=== PATIENT | female | born 1935 | race Caucasian/White ===

== ENCOUNTER 2017-05-28 06:55 | Day surgery (SDC) | payer MEDICARE, MEDICAID ==
[2017-05-28] VITALS (8 sets, daily range): BP systolic 140–157; BP diastolic 51–68
[~2017-05-28] VITALS: Ht 165.1 cm; Wt 62.7 kg
[~2017-05-28 06:55] MED LIST: ACET600C PO; AMLO5TAB16 PO; CYA500T PO; FURO-150 PO; HORS300C PO; LACT1CAP65 PO; LEVO100T9 PO; LEVO250T58 PO; LOSA50TA37 PO; MULT-1085 PO; PROP10DR5 OP; THIO50CA PO; VITC500T PO; hyDRALAzine tablet PO
[2017-05-28] MEDS ORDERED: fentaNYL/PF 50MCG/1 ML 2ML syringe ONE (07:09)
[2017-05-28] MEDS ORDERED: meperidine/PF 100mg/ml syringe ONE (07:09)
[2017-05-28] MEDS ORDERED: diphenhydrAMINE 50 mg/ml inj ONE (07:09)
[2017-05-28] MEDS ORDERED: MIDAZolam 1mg/ml 10ml vial ONE (07:09)
[2017-05-28] MEDS ORDERED: LIDOcaine Viscous 15ml cup ONE (07:10)
[2017-05-28] MEDS ORDERED: iohexol 300 MG/1 ML 50ml polymer ONE (07:10)
[2017-05-28] MEDS ORDERED: glucagon, human recombinant 1mg kit ONE ×2 (07:10)
[2017-05-28] MEDS ORDERED: levoFLOXACIN-Levaquin 500mg/D5 0 ML IV ONE (07:10)
[2017-05-28] MEDS ORDERED: AMLO10TA PO (07:23)
[2017-05-28] MEDS ORDERED: FURO20TA4 PO (07:23)
[2017-05-28] MEDS ORDERED: LEVO100T9 PO (07:28)
[2017-05-28] MEDS ORDERED: MULT-38 PO (07:32)
[2017-05-28] MEDS ORDERED: LOSA100T28 PO (07:32)
[2017-05-28] MEDS ORDERED: PROP10DR4 OP (07:34)
[2017-05-28] MEDS ORDERED: HYDR-4069 PO (07:34)
== END 2017-05-28 10:40 | disposition home or self-care (01) ==
LOC: GI LAB 06:55
PROVIDERS: ATTEND Internal Medicine Gastroenterology
DX: Z46.59 Encounter for fitting and adjustment of other gastrointestinal appliance and device (principal); I12.9 Hypertensive chronic kidney disease with stage 1 through stage 4 chronic kidney disease, or unspecified chronic kidney disease; E11.22 Type 2 diabetes mellitus with diabetic chronic kidney disease; N18.3 Chronic kidney disease, stage 3 (moderate); E03.9 Hypothyroidism, unspecified; Z87.440 Personal history of urinary (tract) infections; Z91.013 Allergy to seafood; Z88.0 Allergy status to penicillin; Z91.018 Allergy to other foods
CPT/HCPCS: 43275; J1200; J1610; J2250; J3010; J7030; Q9967; A4620; G0500; J1956; J2175

== ENCOUNTER 2017-11-02 09:56 | Emergency (ER) | payer MEDICARE, MEDICAID ==
[~2017-11-02] VITALS: Ht 162.6 cm; Wt 41.0 kg
[~2017-11-02 09:56] MED LIST changes: -ACET600C PO; +AMLO10TA PO; -AMLO5TAB16 PO; -CYA500T PO; -FURO-150 PO; +FURO20TA4 PO; -HORS300C PO; +HYDR-4069 PO; -LACT1CAP65 PO; -LEVO250T58 PO; +LOSA100T28 PO; -LOSA50TA37 PO; -MULT-1085 PO; +MULT-38 PO; +PROP10DR4 OP; -PROP10DR5 OP; -THIO50CA PO; -VITC500T PO; -hyDRALAzine tablet PO
[2017-11-02] MEDS ORDERED: LIDOcaine 1.5% w/epinephrine 1:200,000 5ml ampul IJ ONE (10:15)
[2017-11-02] MEDS ORDERED: TETanus/Pertussis (Acell)/Diphther VAC/PF (Tdap-Adult) 0.5ml syringe IM ONE (10:15)
[2017-11-02 11:01] VITALS: BP 191/72
== END 2017-11-02 11:04 | disposition home or self-care (01) ==
LOC: ER 09:57
DX: S01.01XA Laceration without foreign body of scalp, initial encounter (principal); I10 Essential (primary) hypertension; E11.9 Type 2 diabetes mellitus without complications; Z79.899 Other long term (current) drug therapy; Z88.0 Allergy status to penicillin; Z91.013 Allergy to seafood; W18.30XA Fall on same level, unspecified, initial encounter; Y93.89 Activity, other specified; Y92.89 Other specified places as the place of occurrence of the external cause; Y99.8 Other external cause status
CPT/HCPCS: 12001; 90471; 90715; 99284; J3490

== ENCOUNTER → 2017-12-22 | Outpatient (CLI) | payer MEDICARE, MEDICAID | END | disposition home or self-care (01) | LOC: CARD DIAG 11:20 | PROVIDERS: ATTEND Student in an Organized Health Care Education/Training Program | DX: I08.3 Combined rheumatic disorders of mitral, aortic and tricuspid valves (principal); R01.1 Cardiac murmur, unspecified; M79.671 Pain in right foot; I10 Essential (primary) hypertension; E11.9 Type 2 diabetes mellitus without complications | CPT/HCPCS: 93306 ==

== ENCOUNTER 2018-01-12 20:15 | Emergency (ER) | payer MEDICARE, MEDICAID ==
[~2018-01-12] VITALS: Ht 165.1 cm; Wt 64.0 kg
[~2018-01-12 20:15] MED LIST changes: +LOSA100T15 PO; -LOSA100T28 PO
[2018-01-12 21:00] LABS: BASOPHILS % (AUTO) 0.4 % (0-1); EOSINOPHILS # (AUTO) 0.2 X10'3 (0-0.9); EOSINOPHILS % (AUTO) 2.5 % (0-6); HEMATOCRIT 36.2 % (35.0-45.0); HEMOGLOBIN 12.5 g/dl (12.0-16.0); LYMPHOCYTES # (AUTO) 2.4 X10'3 (1.1-4.8); LYMPHOCYTES % (AUTO) 26.8 % (21-51); MEAN CORPUSCULAR HGB CONC 34.5 % (33.0-36.5); MEAN CORPUSCULAR VOLUME 92.7 FL (78-98); MEAN PLATELET VOLUME 7.2 FL (7.4-10.4); MONOCYTES # (AUTO) 0.6 X10'3 (0-0.9); MONOCYTES % (AUTO) 6.8 % (2-12); NEUTROPHILS # (AUTO) 5.8 X10'3 (1.8-7.7); NEUTROPHILS % (AUTO) 63.5 % (42-75); PLATELET COUNT 240 X10'3 (140-440); RED BLOOD COUNT 3.91 X10'6 (4.20-5.60); RED CELL DISTRIBUTION WIDTH 13.7 % (11.5-14.5); WHITE BLOOD COUNT 9.1 X10'3 (4.5-11.0)
[2018-01-12 21:01] VITALS: BP 173/65
[2018-01-12 21:15] LABS: ALANINE AMINOTRANSFERASE 23 U/L (12-78); ALBUMIN 3.6 G/DL (3.4-5.0); ALKALINE PHOSPHATASE 111 IU/L (46-116); ANION GAP 9 (8-16); ASPARTATE AMINO TRANSFERASE 22 U/L (10-37); BILIRUBIN,TOTAL 0.4 MG/DL (0.1-1.0); BLOOD UREA NITROGEN 43 MG/DL (7-18); BUN/CREATININE RATIO 21.3 (6.6-38.0); CALCIUM 8.9 MG/DL (8.5-10.1); CHLORIDE 105 MMOL/L (99-107); CREATININE 2.02 MG/DL (0.40-0.90); GLUCOSE 107 MG/DL (70-104); POTASSIUM 4.7 MMOL/L (3.5-5.1); SODIUM 137 MMOL/L (135-145); TOTAL CARBON DIOXIDE 22.9 MMOL/L (24-32); TOTAL PROTEIN 7.3 G/DL (6.4-8.2); eGFR 24 ML/MIN
[2018-01-12 21:22] LABS: D-DIMER 4.36 MG/L FEU (0-0.50); PARTIAL THROMBOPLASTIN TIME 27 SECONDS (22-32); PROTHROMBIN TIME 9.9 SECONDS (9.0-12.0)
[2018-01-12 23:19] LABS: CLARITY,URINE CLEAR (Clear); COLOR,URINE STRAW (Yellow); GLUCOSE, URINE NEGATIVE (Neg); KETONES,URINE NEGATIVE (Neg); LEUKOCYTE ESTERASE ,URINE NEGATIVE (Neg); NITRITES, URINE NEGATIVE (Neg); OCCULT BLOOD,URINE NEGATIVE (Neg); PROTEIN,URINE NEGATIVE (Neg); UROBILINOGEN,URINE 0.2 E.U/dL (0.2-1.0)
[2018-01-12 23:22] LABS: UA COLLECTION TYPE CLN CATCH MIDSTREAM
== END 2018-01-12 23:19 | disposition short-term general hospital (02) ==
LOC: ER 20:16
DX: S06.5X0A Traumatic subdural hemorrhage without loss of consciousness, initial encounter (principal); R79.1 Abnormal coagulation profile; I10 Essential (primary) hypertension; E11.9 Type 2 diabetes mellitus without complications; Z88.0 Allergy status to penicillin; Z91.013 Allergy to seafood; Z91.018 Allergy to other foods; W18.30XA Fall on same level, unspecified, initial encounter; Y93.89 Activity, other specified; Y92.89 Other specified places as the place of occurrence of the external cause; Y99.8 Other external cause status
CPT/HCPCS: 36415; 70450; 71045; 80053; 81003; 83880; 84484; 85025; 85379; 85610; 85730; 99285; A6449